=== PATIENT | female | born 1985 | race Caucasian/White ===

== ENCOUNTER → 2019-03-08 13:43 | Outpatient (CLI) | payer OTHER, SELFPAY ==
--- NOTE | 2019-03-08 13:48 | XR_ITS ---
PROCEDURE: XR SHOULDER LT MIN 2V CLINICAL INDICATION: Left shoulder pain Limited range of motion COMPARISON: No exams were available for comparison FINDINGS: No fracture, dislocation, lytic change, or blastic change evident. No significant degenerative change IMPRESSION: Negative left shoulder Dictated by: Nazario Ventura MD 03/08/2019 14:15 Signed by: <Electronically signed by Nazario Ventura MD in [place]> 03/08/2019 14:15
== END ==
PROVIDERS: PCP Physician Assistant; Visit Provider Physician Assistant
DX: M25.512 Pain in left shoulder (principal)
CPT/HCPCS: 73030

== ENCOUNTER → 2019-03-21 16:20 | Outpatient (CLI) | payer OTHER, SELFPAY | PROVIDERS: Visit Provider Nurse Practitioner Obstetrics & Gynecology | DX: N39.0 Urinary tract infection, site not specified (principal) | CPT/HCPCS: 87086; 87088; 87186 ==

== ENCOUNTER → 2019-04-18 10:39 | Outpatient (CLI) | payer OTHER, SELFPAY ==
--- NOTE | 2019-04-18 10:41 | MR_ITS ---
PROCEDURE: MR SHOULDER LT WO CON CLINICAL INDICATION: Left shoulder pain X 3 months Left shoulder pain with limited range of motion COMPARISON: XR SHOULDER LT MIN 2V from 03/08/2019 TECHNIQUE: Routine multiplanar multi echo sequences are performed without gadolinium enhancement. FINDINGS: There are mild hypertrophic changes of the acromioclavicular joint with mild subacromial stenosis. There is slight increased T2 signal and slight thickening of the distal aspect of the supraspinatus tendon suggesting tendinopathy/tendinosis. There is some focal thinning of the musculotendinous junction of the supraspinatus along the under surface and could be related to partial tear. A complete tear or full-thickness tear is not identified. The subscapularis, infraspinatus, and teres minor tendons appear intact. No obvious labral tear. There is a small shoulder joint effusion. The bicipital tendon appears to be in place. No fracture or dislocation. Small amount of fluid is present in the bicipital tendon sheath IMPRESSION: 1. Tendinopathy/tendinosis of the supraspinatus tendon with mild subacromial stenosis with possible partial tear of the musculotendinous junction of the supraspinatus tendon 2. Small shoulder joint effusion. Small amount of fluid is present in the bicipital tendon sheath suggesting mild tenosynovitis Dictated by: Nazario Ventura MD 04/20/2019 12:02 Electronically signed by Nazario Ventura MD in [place] 04/29/2019 09:56
== END ==
PROVIDERS: PCP Physician Assistant; Visit Provider Physician Assistant
DX: M25.512 Pain in left shoulder (principal)
CPT/HCPCS: 73221

== ENCOUNTER → 2019-04-30 08:35 | Outpatient (CLI) | payer OTHER, SELFPAY ==
--- NOTE | 2019-04-30 08:38 | XR_ITS ---
PROCEDURE: XR SHOULDER LT MIN 2V CLINICAL INDICATION: left shoulder pain COMPARISON: XR SHOULDER LT MIN 2V from 03/08/2019 FINDINGS: No fracture, dislocation, lytic change, or blastic change evident. No significant degenerative change IMPRESSION: Negative left shoulder. No change from 03/08/2019 Dictated by: Nazario Ventura MD 04/30/2019 12:49 Electronically signed by Nazario Ventura MD in [place] 04/30/2019 12:49
== END ==
PROVIDERS: PCP Physician Assistant; Visit Provider Orthopaedic Surgery
DX: M25.512 Pain in left shoulder (principal)
CPT/HCPCS: 73030

== ENCOUNTER 2019-06-14 09:00 | Outpatient (RCR) | payer OTHER, SELFPAY ==
--- NOTE | 2019-04-25 10:24 | HMH.RHREAS ---
Rehab Reassessment Rehab OP Re-assessment Start: 04/25/19 10:18 Freq: Status: Active Protocol: Document 04/25/19 10:18 HAILE (Rec: 04/25/19 10:24 HAILE [id number]) Electronically Signed By Caroline Grover OT 04/25/19 10:18 Rehab Re-assessment Subjective Subjective I still haven't heard anything. Objective Objective Notes Pt continues to be seen twice a week in order to address all deficits. Each time pt engages in AROM/AAROM exercises in order to increase AROM at left shoulder. Pt is also passively ranged in flexion, abduction, IR, and ER in supine. Modalities are provided to decrease pain/ inflammation (e-stim). Assessment Progress Assessment Slower Than Expected Assessment Notes Pt is continuing to have significant pain in the left shoulder. Motion has improved SLIGHTLY since initial evaluation. Pt recently had an MRI completed, but has not hear her results. Pt does have an appointment next week with an ortho. Current AROM Flex: 105 degrees Abd: 105 degrees ER: 55 degrees IR: 35 degrees Patient goals met No goals have been met at this time. Goals Not Met all STG and LTG Revised Goals Continue progressing towards all STG and LTG written on initial evaluation. Plan Plan Continue with OT plan of care at this time. Frequency of Therapy 2x's a week Duration of therapy 6 more weeks Time and Billing Re-Eval Time 15 Re-Eval Billing Units 1 PHYSICIAN CERTIFICATION: I certify the specified therapy services for Maritza Carl are required, authorized, and reviewed every 30 days.
--- NOTE | 2019-06-14 10:01 | HMH.RHREAS ---
Rehab Reassessment Rehab OP Re-assessment Start: 04/25/19 10:18 Freq: Status: Active Protocol: Document 06/14/19 09:07 HAILE (Rec: 06/14/19 10:01 HAILE [id number]) Electronically Signed By Caroline Grover OT 06/14/19 09:07 Rehab Re-assessment Subjective Subjective I don't really see a difference. Objective Objective Notes Pt continues to be seen twice a week in order to address all deficits. Each time pt engages in AROM/AAROM exercises in order to increase AROM at left shoulder. Pt is also passively ranged in flexion, abduction, IR, and ER in supine. Modalities are provided to decrease pain/ inflammation (e-stim). Assessment Progress Assessment Slower Than Expected Assessment Notes Pt is continuing to have pain in the left shoulder daily. Pt was given second injection on the 12th of this month. Pt reports she does not see an improvement in pain or motion. During previous session, therapist was able to passivly range the shoulder slightly more in abduction and ER than normal. During movement pain: 01/30 No motion: 08/02 Current AROM Flex: 112 degrees Abd: 105 degrees ER: 65 degrees IR: 55 degrees Patient goals met No goals have been met at this time. Goals Not Met all STG and LTG Revised Goals Continue progressing towards all STG and LTG written on initial evaluation. Plan Plan Continue with OT plan of care at this time. Frequency of Therapy 2x's a week Duration of therapy 6 more weeks Time and Billing Re-Eval Time 15 Re-Eval Billing Units 1 PHYSICIAN CERTIFICATION: I certify the specified therapy services for Maritza Carl are required, authorized, and reviewed every 30 days.
== END 2019-06-14 09:05 | disposition home or self-care (01) ==
LOC: OT 09:00
PROVIDERS: Visit Provider Physician Assistant
DX: M25.512 Pain in left shoulder (principal)
CPT/HCPCS: 97014; 97033; 97110; 97140; 97164; 97166; G0283

== ENCOUNTER → 2019-11-04 13:48 | Outpatient (CLI) | payer OTHER, SELFPAY ==
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
== END ==
PROVIDERS: PCP Physician Assistant; Visit Provider Orthopaedic Surgery
DX: S52.501A Unspecified fracture of the lower end of right radius, initial encounter for closed fracture (principal); Z09 Encounter for follow-up examination after completed treatment for conditions other than malignant neoplasm
CPT/HCPCS: 73110

== ENCOUNTER → 2019-11-22 13:45 | Outpatient (CLI) | payer OTHER, SELFPAY ==
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
== END ==
PROVIDERS: PCP Physician Assistant; Visit Provider Orthopaedic Surgery
DX: S62.101A Fracture of unspecified carpal bone, right wrist, initial encounter for closed fracture (principal)
CPT/HCPCS: 73110

== ENCOUNTER → 2019-12-17 09:24 | Outpatient (CLI) | payer OTHER, SELFPAY ==
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
== END ==
PROVIDERS: PCP Physician Assistant; Visit Provider Orthopaedic Surgery
DX: S62.101A Fracture of unspecified carpal bone, right wrist, initial encounter for closed fracture (principal)
CPT/HCPCS: 73110

== ENCOUNTER 2019-12-17 10:26 | Outpatient (RCR) | payer OTHER, SELFPAY | END 2019-12-17 11:00 | disposition home or self-care (01) | LOC: OT 10:26 | PROVIDERS: Visit Provider Orthopaedic Surgery | DX: S62.101A Fracture of unspecified carpal bone, right wrist, initial encounter for closed fracture (principal) | CPT/HCPCS: 97763 ==

== ENCOUNTER → 2020-01-02 09:52 | Outpatient (CLI) | payer OTHER, SELFPAY ==
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
== END ==
PROVIDERS: PCP Physician Assistant; Visit Provider Orthopaedic Surgery
DX: S52.501A Unspecified fracture of the lower end of right radius, initial encounter for closed fracture (principal)
CPT/HCPCS: 73110

== ENCOUNTER → 2020-01-03 11:54 | Outpatient (POV) | payer OTHER, SELFPAY ==
[2020-01-03 12:11] VITALS: BP 106/44; PULSE 98; RESP 20; TEMP 37; O2SAT 100; BMI 33.3
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
== END ==
PROVIDERS: PCP Physician Assistant; Visit Provider Anesthesiology
DX: G90.511 Complex regional pain syndrome I of right upper limb (principal)
CPT/HCPCS: 99202

== ENCOUNTER 2020-01-08 09:40 | Day surgery (SDC) | payer OTHER, SELFPAY ==
[2020-01-08 09:51] VITALS: BP 115/46; PULSE 75; RESP 18; TEMP 36.4; O2SAT 95; BMI 33.8
[2020-01-08 10:27] VITALS: BP 131/87; BP 132/79; PULSE 88; RESP 18; O2SAT 99
[2020-01-08 11:10] VITALS: BP 115/79; PULSE 68; RESP 18; TEMP 36.6
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
== END 2020-01-08 10:45 | disposition home or self-care (01) ==
LOC: SC.PAINP 09:41
PROVIDERS: PCP Physician Assistant; Visit Provider Anesthesiology
DX: G90.511 Complex regional pain syndrome I of right upper limb (principal)
CPT/HCPCS: 64510; 77003; J1040; Q9966

== ENCOUNTER → 2020-01-20 10:52 | Outpatient (POV) | payer OTHER, SELFPAY ==
[2020-01-20 11:07] VITALS: BP 115/47; PULSE 71; RESP 18; O2SAT 98; BMI 32.9
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
== END ==
PROVIDERS: PCP Physician Assistant; Visit Provider Clinical Nurse Specialist Family Health
DX: G90.511 Complex regional pain syndrome I of right upper limb (principal)
CPT/HCPCS: 99212

== ENCOUNTER → 2020-01-23 10:04 | Outpatient (CLI) | payer OTHER, SELFPAY ==
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
== END ==
PROVIDERS: PCP Physician Assistant; Visit Provider Orthopaedic Surgery
DX: G90.511 Complex regional pain syndrome I of right upper limb (principal); S62.101A Fracture of unspecified carpal bone, right wrist, initial encounter for closed fracture
CPT/HCPCS: 73110

== ENCOUNTER → 2020-02-06 08:42 | Outpatient (POV) | payer OTHER, SELFPAY ==
[2020-02-06 08:58] VITALS: BP 115/45; PULSE 70; RESP 18; O2SAT 98; BMI 32.9
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
== END ==
PROVIDERS: PCP Physician Assistant; Visit Provider Clinical Nurse Specialist Family Health
DX: G90.511 Complex regional pain syndrome I of right upper limb (principal)
CPT/HCPCS: 99212

== ENCOUNTER 2020-02-14 08:48 | Day surgery (SDC) | payer OTHER, SELFPAY ==
[2020-02-14 09:07] VITALS: BP 109/55; PULSE 77; RESP 18; TEMP 37.5; O2SAT 100; BMI 32.9
[2020-02-14 09:48] VITALS: BP 125/88; PULSE 79; RESP 18
[2020-02-14 09:49] VITALS: BP 135/88; PULSE 79; RESP 18; O2SAT 99
--- NOTE | 2020-02-14 10:01 | HMH.PMPROC ---
- Procedure Date: 02/14/20 Time: 10:01 Anesthesiologist:: Manjeet Torres MD Complications:: None Pre-procedure Diagnosis:: Complex regional pain syndrome type I of the right upper extremity Post-procedure Diagnosis:: Same Indications for Procedure:: This patient is a pleasant 34-year-old white female who we are treating for complex regional pain syndrome type I of the right upper extremity. She has had 1 stellate ganglion block on the right side. This did help some with her autonomic symptoms. She has noticed decrease in swelling and decrease in discoloration. She still has significant pain and difficulty with movement. She is scheduled for another right stellate ganglion block/sympathetic block today followed by physical therapy. Procedure Details:: Right stellate ganglion block Informed consent was obtained and the risk and benefits of the procedure were explained the patient. Patient was taken to the procedure room. The right neck was prepped using ChloraPrep. The skin and subcutaneous tissues were anesthetized using lidocaine. A 25-gauge needle was used and advanced to the transverse process of the C7 vertebral body on the right side. Needle placement was confirmed with dye. We then injected 20 mL of lidocaine 1% with Depo-Medrol 80 mg into the area of the right stellate ganglion. The patient tolerated the procedure well with no complications. She did very well with this procedure and felt good pain relief in her right upper extremity immediately after the procedure. She was sent to physical therapy after the procedure. Plan and Disposition:: We will follow-up with her and in 1 week. We will reevaluate her symptoms and plan on repeat right stellate ganglion block here in the next 1 to 2 weeks again followed by physical therapy. I told the patient that we will plan on at least 3 stellate ganglion blocks followed by physical therapy and then reassess her symptomology at that point.
[2020-02-14 10:09] VITALS: BP 118/59; PULSE 74; RESP 20; O2SAT 99
== END 2020-02-14 10:10 | disposition home or self-care (01) ==
LOC: SC.PAINP 08:49
PROVIDERS: PCP Physician Assistant; Visit Provider Anesthesiology
DX: G90.511 Complex regional pain syndrome I of right upper limb (principal); Z82.49 Family history of ischemic heart disease and other diseases of the circulatory system; Z87.448 Personal history of other diseases of urinary system; Z79.899 Other long term (current) drug therapy
CPT/HCPCS: 64510; 77003; J1040; Q9966

== ENCOUNTER 2020-02-19 08:00 | Outpatient (RCR) | payer OTHER, SELFPAY ==
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
--- NOTE | 2020-02-04 08:50 | HMH.RHREAS ---
Rehab Reassessment Rehab OP Re-assessment Start: 02/04/20 08:20 Freq: Status: Active Protocol: Document 02/04/20 08:20 RMARSHALL (Rec: 02/04/20 08:50 [email or web address] [id number]) Electronically Signed By Caroline Grover OT 02/04/20 08:20 Rehab Re-assessment Subjective Subjective My shoulder has been hurting me more. Objective Objective Notes Pt continues to be seen twice a week in order to address RUE deficits. Pt is passively ranged at all joints on RUE ( fingers, wrist, elbow, and shoulder). Pt also engages in AROM and AAROM exercises at the RUE. Modalities are provided in order to try to decrease pain/inflammation at RUE. Assessment Progress Assessment Slower Than Expected Assessment Notes At this point in time, pt has not demonstrated improvement in RUE. Therapist is awaiting on dynasplint to fit patient for wrist extension and finger extension splint to aid in regaining motion of the right hand. Patient is also receiving treatment from pain management in order to control her pain/inflammation at RUE. Pt has received one injection from [employer] and has recently started gabapentin 3x's a day 100mg. Therapists main focus is maintaining the motion she has in the RUE until her CRPS begin resolving. For now, pt' s measurements are all the same as they were at initial evaluation Patient goals met No goals have been met at this time. Goals Not Met STG and LTG Revised Goals Continue progressing towards all goals written on initial evaluation Plan Plan Continue with OT plan of care. Frequency of Therapy 2x's a week Duration of therapy 8 more weeks Time and Billing Re-Eval Time 15 Re-Eval Billing Units
== END 2020-02-19 09:00 | disposition home or self-care (01) ==
LOC: OT 08:00
PROVIDERS: Visit Provider Orthopaedic Surgery
DX: S52.501A Unspecified fracture of the lower end of right radius, initial encounter for closed fracture (principal)
CPT/HCPCS: 97010; 97014; 97018; 97110; 97140; 97164; 97167; G0283

== ENCOUNTER → 2020-02-27 09:51 | Outpatient (CLI) | payer OTHER, SELFPAY ==
--- NOTE | 2020-02-27 | CT_ITS ---
PROCEDURE: CT SOFT TISSUE NECK WO CON CLINICAL HISTORY: Right-sided neck pain and swelling COMPARISON: No exams were available for comparison TECHNIQUE: Oral Contrast: None IV Contrast: None Axial images obtained with sagittal and coronal reformats. All CT scans at the facility use one or more dose reduction, viz: automated exposure control, ma/kV adjustment per patient size (including targeted exams where dose is matched to indication, i.e. head), or iterative reconstruction technique. FINDINGS: The nasopharynx has an unremarkable appearance. There is some increased soft tissue density in the left oral pharyngeal region. This is at the level of the uvula. Please correlate with direct visualization. The hypopharynx, epiglottis, and glottic region have an unremarkable appearance. There is a large heterogeneous mass of the right lobe of the thyroid gland measuring 5.8 x 3.2 x 4.2 cm longitudinal, transverse, and AP respectively there does appear to be a prominent cystic component to this mass with some peripheral areas of slight increased echogenicity. This is causing deviation of the trachea toward the left by 1.3 cm with some minimal narrowing of the airway. No cervical adenopathy. There are few scattered small cervical lymph nodes bilaterally. No acute finding in the lung apices IMPRESSION: 1. Complex cystic and solid-appearing right thyroid mass at 5.8 x 3.2 x 4.2 cm causing deviation of the trachea toward the left. 2. Slight increased soft tissue fullness in the oropharynx on the left. Please correlate with direct visualization. Dictated b Nazario Ventura MD 02/27/2020 13:16 Nazario Ventura MD in [facility] 02/27/2020 13:16
--- NOTE | 2020-02-27 | CT_ITS ---
PROCEDURE: CT HEAD/BRAIN WO CON CLINICAL INDICATION: Pain and swelling COMPARISON: CT CT HEAD/BRAIN WO CON from 10/29/2019 TECHNIQUE: Axial images obtained. All CT scans at the facility use one or more dose reduction, viz: automated exposure control, ma/kV adjustment per patient size (including targeted exams where dose is matched to indication, i.e. head), or iterative reconstruction technique. FINDINGS: No midline shift, mass effect, intracranial hemorrhage, hydrocephalus, or extra-axial fluid collection is evident. The calvarium has an unremarkable appearance. No mastoid effusion. No sinus air-fluid level. There is a 11 mm retention cyst in the left maxillary sinus medially IMPRESSION: No acute intracranial finding Dictated b Nazario Ventura MD 02/27/2020 13:11 Nazario Ventura MD in [facility] 02/27/2020 13:11
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
[2020-02-27 13:10] LABS: Basophils % 0.2 % (0.1-2.0); Eosinophils # 0.1 K/mm3 (0.0-0.4); Eosinophils % 0.7 % (0.1-12.0); Hematocrit 40.7 % (37.0-47.0); Hemoglobin 13.5 g/dL (12.2-16.2); Lymphocytes # 1.1 K/mm3 (0.7-4.5); Lymphocytes % 8.8 % (10-50); Mean Corpuscular HGB Conc 33.1 g/dL (31.8-35.4); Mean Corpuscular Hemoglobin 31.3 pg (27.0-31.2); Mean Corpuscular Volume 94.5 fl (81-99); Mean Platelet Volume 7.6 fl (7.4-10.4); Monocytes # 0.6 K/mm3 (0.1-1.0); Monocytes % 4.8 % (1.7-9.3); Neutrophils # 10.9 K/mm3 (1.8-7.8); Neutrophils % 85.4 % (37.0-80.0); Platelet Count 336 K/mm3 (142-424); Red Cell Distribution Width 13.5 % (11.5-17.5); White Blood Count 12.8 K/mm3 (4.8-10.8)
[2020-02-27 13:12] LABS: MANUAL DIFFERENTIAL MANUAL DIFFERENTIAL (MANUAL DIFF)
[2020-02-27 13:45] LABS: Lymphocytes % 13 % (10-50); Monocytes % 8 % (2-9); Neutrophils % 79 % (42-76); Platelet Estimate Normal; RBC Morphology Normal; Total Cells Counted 100
== END ==
PROVIDERS: PCP Physician Assistant; Visit Provider Clinical Nurse Specialist Family Health
DX: S52.501A Unspecified fracture of the lower end of right radius, initial encounter for closed fracture (principal)
CPT/HCPCS: 36415; 70450; 70490; 73110; 85007; 85025

== ENCOUNTER → 2020-02-27 11:05 | Outpatient (POV) | payer OTHER, SELFPAY ==
[2020-02-27 11:27] VITALS: BP 125/88; PULSE 88; RESP 18; O2SAT 98; BMI 32.9
--- NOTE | 2020-02-27 11:51 | HMH.PAINSOAP ---
[facility] Pain Management SOAP Note Subjective:: Patient is a 34-year-old white female who presents today at the recommendation of Dr. Levin. Patient is being treated in our clinic for CRPS type I of her right upper extremity. Patient recently underwent a stellate ganglion block. Patient says she was getting relief following the injection. She underwent the injection approximately 13 days ago. Patient says she began to notice some swelling on the right side of her neck 2 days ago. She says she also started to have some difficulty with swallowing and with turning her head. She denies any pain on the left side. Patient says she did contact Dr. Levin who advised her to contact our clinic for follow-up. Patient does have some generalized swelling noted to her right neck area. She denies any fevers, headaches, chills or dizziness. She rates her pain a 7 out of 10. Patient denies any changes in her CRPS type symptoms. She says that she has not noticed any changes in her CRPS type symptoms. Review of Systems General: No recent weight changes, no fever, no sleep disturbances Respiratory: No cough, no shortness of air, no recurring pulmonary infections Cardiovascular/peripheral vascular: No chest pain, no palpitations, no edema, no shortness of breath Gastrointestinal: No new onset incontinence, normal bowel movements reported Genitourinary: No new onset incontinence Musculoskeletal: Right neck pain Psychiatric: Normal mood/affect Neurological: [Denies weakness in extremities], [denies balance issues] Objective:: Physical exam General: Alert and oriented x3, no acute distress, pleasant and cooperative, [on room air] Lungs: Respirations even and unlabored, symmetrical chest expansion Eyes: PERRL Musculoskeletal: Flexion and extension of apical spine somewhat guarded secondary to pain, deep tendon reflexes normal, strength in upper and lower extremities [5/5], normal gait noted Neurological: Speech clear, health evaluator equal, no gross sensory deficit Assessment:: CRPS type I of his right upper extremity Plan:: After further discussion with Dr. Torres, we will send the patient for a CBC today along with a CT of her head and neck. Patient had the injection approximately 2 weeks ago. Symptoms started approximately days ago. We will refer her to ENT today. She will be seen in their office at 1245 today. We will then follow-up with her regarding her CBC and CT of her head and neck after she does see the provider in the ENT clinic. I have attempted to contact Dr. Levin today regarding our plan of care. Patient has been instructed to contact the clinic if she has any concerns before next appointment. The patient and I specifically discussed risk factors for COVID19. These risks include, but are not limited to age greater than 60, heart or lung disease, diabetes, immunosuppression, and travel. We also discussed NSAIDs may worsen COVID19 infection or symptoms. Patient should not use NSAIDs to treat COVID19 signs or symptoms. Patient was also informed that any type of corticosteroid of any form (oral or injection) will decrease the patient's immune system response and may increase the likelihood of COVID19 [address] Torres has reviewed this note and agrees with this plan of care. This note was dictated using voice recognition software and make contain errors or omissions. [facility] History I have reviewed the patient's past medical history: Yes Medical History: Denies:: Cancer, Diabetes Mellitus Type 1, Diabetes Mellitus Type 2, Internal Pacemaker, MRSA, Seizures *Have you ever received a pneumonia vaccine?: Yes *Have you received a flu vaccine this season?: Yes Other Medical History: Denies: Blood Transfusion Reaction Other Surgeries: Yes: , Other. No: Pacemaker Amputation: No Fractures: Yes (right wrist, tailbone) - *Social History Smoking Status: Never smoker Alcohol Intake: never Substance Use Type: linwood
== END ==
PROVIDERS: PCP Physician Assistant; Visit Provider Clinical Nurse Specialist Family Health
DX: G90.511 Complex regional pain syndrome I of right upper limb (principal)
CPT/HCPCS: 99212

== ENCOUNTER → 2020-03-02 08:36 | Outpatient (CLI) | payer OTHER, SELFPAY ==
--- NOTE | 2020-03-02 08:37 | US_ITS ---
PROCEDURE: US THYROID CLINICAL INDICATION: possible thyroid mass vs thyroid hemorrhage COMPARISON: CT CT SOFT TISSUE NECK WO CON from 02/27/2020 FINDINGS: Right lobe: 4.0cm x 6.3cm x 4.6cm. There is a 5 x 4 cm complex cystic mass involving the right lobe of the thyroid gland. There is some wall thickening along the lower aspect of this mass versus compressed thyroid tissue. There is some irregularity of the cyst wall superiorly along with some septation superiorly. No obvious acute hemorrhage within the mass. Left lobe: 1.0cm x 2.7cm x 0.9cm. The left lobe is 2.7 x 1 cm with heterogeneous echogenicity and a 9 mm complex nodule in the upper pole Isthmus: A 2 x 0.9 cm solid-appearing nodules present in the right aspect of the isthmus Additional findings: IMPRESSION: Enlarged right lobe of the thyroid gland with complex cystic mass measuring 5 x 4 cm. Dictated b Nazario Ventura MD 03/03/2020 09:44 Nazario Ventura MD in [facility] 03/03/2020 09:44
[2020-03-02 10:32] LABS: Calcium 9.6 mg/dl (8.4-10.2)
[2020-03-02 10:48] LABS: Free T4 (Free Thyroxine) 2.09 ng/dl (0.78-2.19)
[2020-03-02 11:02] LABS: Thyroid Stimulating Hormone < 0.02 uIU/mL (0.465-4.68)
[2020-03-03 09:37] LABS: Thyroid Peroxidase Antibodies <9 IU/mL (0-34)
[2020-03-04 19:43] LABS: Thyroid Stimulating Immunoglob <0.10 IU/L (0.00-0.55)
[2020-03-26 09:31] LABS: Calcitonin <2.0
== END ==
PROVIDERS: PCP Physician Assistant; Visit Provider Otolaryngology
DX: E07.9 Disorder of thyroid, unspecified (principal); J39.8 Other specified diseases of upper respiratory tract
CPT/HCPCS: 36415; 76536; 82308; 82310; 84439; 84443; 84445; 86376

== ENCOUNTER → 2020-03-02 09:21 | Outpatient (CLI) | payer OTHER, SELFPAY | PROVIDERS: Visit Provider Otolaryngology | DX: R22.1 Localized swelling, mass and lump, neck (principal) | CPT/HCPCS: 36415; 82308; 82310; 84439; 84443; 84445; 86376 ==

== ENCOUNTER → 2020-03-05 13:57 | Outpatient (POV) | payer OTHER, SELFPAY ==
[2020-03-05 14:22] VITALS: BP 121/71; PULSE 65; RESP 18; O2SAT 98; BMI 27.2
--- NOTE | 2020-03-05 14:33 | HMH.PAINSOAP ---
[facility] Pain Management SOAP Note Subjective:: Patient is a very pleasant 34-year-old white female who presents today for follow-up. She is being treated for CRPS type I of her right upper extremity. At the patient's last visit, she was reporting to have issues with swallowing as well as occultly with turning her head. She was having some swelling to her neck on the right side. Also reported at that last visit that she developed the swelling following as stellate ganglion block. As a result, she was sent to our clinic by Dr. Levin. Patient was sent for a CT scan. She was also sent to ENT that day. Patient has since followed up with ENT who has scheduled the patient for a biopsy of her thyroid on March 18. She says she is also scheduled to have a nerve conduction study for possible carpal tunnel release. That will be performed on 09 March. She says that she is not having any pain at this time. She says that the stellate ganglion block did take all of the swelling out of her right upper extremity, most notably her hand. She does say, however, she is continuing to have autonomic changes of color and temperature changes. She says the injections have given her some relief, however it has not taken all of her symptoms away. She rates her pain a 0 out of 10 at this time. Review of Systems General: No recent weight changes, no fever, no sleep disturbances Respiratory: No cough, no shortness of air, no recurring pulmonary infections Cardiovascular/peripheral vascular: No chest pain, no palpitations, no edema, no shortness of breath Gastrointestinal: No new onset incontinence, normal bowel movements reported Genitourinary: No new onset incontinence Musculoskeletal: Right upper extremity welling with temperature changes and color changes Psychiatric: Normal mood/affect Neurological: [Denies weakness in extremities], [denies balance issues] Objective:: Physical exam General: Alert and oriented x3, no acute distress, pleasant and cooperative, [on room air] Lungs: Respirations even and unlabored, symmetrical chest expansion Eyes: PERRL Musculoskeletal: Flexion and extension of cervical spine somewhat guarded secondary to pain, deep tendon reflexes normal, strength in upper and lower extremities [5/5], normal gait noted Neurological: Speech clear, field control inspector equal, no gross sensory deficit Assessment:: CRPS type I right upper extremity, neck pain Plan:: Patient is scheduled for a biopsy on March 18 and a nerve conduction study on March 09. I did discuss with the patient that we will postpone any injective therapy for now until she undergoes a full work-up with ENT. Patient and I did discuss her previous CT scan of her neck along with her most recent scan. She will follow-up with us after her biopsy and nerve conduction study to discuss a further plan of care. Again, we did discuss if she is benefiting from the stellate ganglion block we will continue with the injections versus possible spinal cord stimulation. She is currently undergoing occupational therapy/physical therapy and she does seem to be getting relief with this. Patient does understand that if the current treatment is working for her, we will not need to change the plan of care. She does also understand that she does have the option of a spinal cord stimulator in the event that the other therapies were not beneficial to her. Patient has been instructed to contact the clinic if she has any concerns before her next appointment. The patient and I specifically discussed risk factors for COVID19. These risks include, but are not limited to age greater than 60, heart or lung disease, diabetes, immunosuppression, and travel. We also discussed NSAIDs may worsen COVID19 infection or symptoms. Patient should not use NSAIDs to treat COVID19 signs or symptoms. Patient was also informed that any type of corticosteroid of any form (oral or injection) will decrease the patient's im
== END ==
PROVIDERS: PCP Physician Assistant; Visit Provider Clinical Nurse Specialist Family Health
DX: G90.511 Complex regional pain syndrome I of right upper limb (principal)
CPT/HCPCS: 99212

== ENCOUNTER → 2020-03-18 10:01 | Outpatient (CLI) | payer OTHER, SELFPAY ==
--- NOTE | 2020-03-18 10:01 | US_ITS ---
PROCEDURE: US FNA THYROID CLINICAL INDICATION: Multiple thyroid nodules, dominant cystic mass on the right COMPARISON: US US THYROID from 03/02/2020 TECHNIQUE: Pre biopsy ultrasound once again demonstrates the dominant complex cystic mass of the right lobe of the thyroid gland. Following obtaining informed consent, using aseptic technique and local anesthesia with buffered lidocaine, fine-needle aspiration was performed of the nodule of interest using sonographic guidance. 3 passes were made into the nodule with a 21 gauge needle. Specimen was given to cytology. FINDINGS: CYTOLOGY: Negative for malignancy. IMPRESSION: Status post fine-needle aspiration of complex cystic mass of the right lobe of the thyroid gland which is negative for malignancy. The patient tolerated the procedure well without evidence of immediate complications and left the ultrasound suite in stable condition. Dictated by: Nazario Ventura MD 04/03/2020 13:06 Nazario Ventura MD in [facility] 04/03/2020 13:06
== END ==
PROVIDERS: PCP Physician Assistant; Visit Provider Otolaryngology
DX: E04.1 Nontoxic single thyroid nodule (principal)
CPT/HCPCS: 10005; 76942

== ENCOUNTER 2020-05-28 01:34 | Emergency (ER) | payer OTHER, SELFPAY ==
[2020-05-28 01:36] VITALS: BP 120/74; PULSE 73; RESP 16; TEMP 36.7; O2SAT 100; BMI 32.8
[2020-05-28 02:00] VITALS: BP 109/63; PULSE 81; RESP 16; O2SAT 99
--- NOTE | 2020-05-28 02:00 | HMH.EDGENADL ---
ED Disposition Clinical Impression: Post-operative complication Qualifiers: Surgical complication system/body Area: circulatory system Surgical complication type: unspecified Procedure type: circulatory, unspecified Qualified Code(s): I97.89 - Other postprocedural complications and disorders of the circulatory system, not elsewhere classified Disposition: Home, Self-Care Condition on Discharge: Good Instructions: DI for Acute Pain -- Adult Additional Instructions: call pcp and surg in am for close follow up Referrals: Ladonna Oliver PA [Primary Care Provider] - - Critical Care Critical Care Time: No Attestation: On 05/28/20, the high probability of a clinically significant, sudden or life threatening deterioration of the following system(s) required my full and direct attention, intervention and personal management. The time I documented below is in addition to time spent performing reported procedures but includes the following listed in this critical care notation. Medical Decision Making - Medical Records Medical records reviewed: Yes: I reviewed the patient's medical records. - Titi Inquiry Pt receiving controlled substance: No Vital Signs: 05/28/20 01:36 05/28/20 02:00 05/28/20 02:30 Temperature 98.1 F Temperature Source Oral Pulse Rate [Left Radial] 73 81 72 Respiratory Rate 16 16 16 Blood Pressure [Right Arm] 120/74 109/63 L 118/64 Blood Pressure Mean [Right Arm] 89 78 82 Blood Pressure Source [Right Arm] Automatic Cuff Blood Pressure Position [Right Arm] Sitting 02 Sat by Pulse Oximetry 100 99 98 Oxygen Delivery Method Room Air Room Air Room Air Orders (Tests/Meds): ED MEDICATIONS Discontinued Medications Generic Name Dose Route Start Last Admin Trade Name Freq PRN Reason Stop Dose Admin Hydrocodone Bitart/Acetaminophen 1 tab 05/28/20 02:40 05/28/20 02:42 Hydrocodone/Apap 5/325 Mg Tablet PO 05/28/20 02:41 1 tab ONCE ONE Administration - Physician Consults Physician Consulted: baldomero Reason -: Pt condition - Reevaluation(s) Time: 03:06 Reevaluation #1: improved Medical Decision Narrative: removed garth and did improve some General Adult HPI - General Chief complaint: PAIN Stated complaint: hand surgery today R pinky purple Time Seen by Provider: 05/28/20 01:45 Mode of Arrival: Ambulatory Source of Information: Patient, Relative, Medical Record Limitations: No Limitations Description of Symptoms (Recalled from ER Triage Doc. by RN): pt stated she had hand surgery today on her right hand at the [facility] to repair her claw hand. pt stated she noticed her pinky finger had a blue color to it around 1130pm. pt stated she still has sensation to that finger and can wiggle it. pt also c/o her nerve block is wearing off and she is in pain and wasnt able to fill her prescription tonight. - History of Present Illness HPI narrative: pt with recent rt hand surg today and noted rt fifth finger blue - has pain but no other c/o Onset (ago): hour(s) Location: right, upper extremity Severity: moderate Associated symptoms: denies other symptoms - Related Data Home Medications Medication Instructions Recorded Confirmed Ibuprofen 800 mg PO Q8HP PRN 01/03/20 03/26/20 Gabapentin [Neurontin 100mg 100 mg PO TID 02/14/20 03/26/20 cap] Allergies Allergy/AdvReac Type Severity Reaction Status Date / Time No Known Allergies Allergy Verified 03/26/20 14:46 [facility] History - Hepatitis A Screen Drug use history?: No High risk sexual behaviors?: No History of sexually transmitted infection?: No Currently employed?: No Childcare worker?: No Do you have indoor plumbing?: Yes Do you have electricity?: Yes Attestation statement:: This patient has been screened for Hepatitis A risk factors. I have reviewed the patient's past medical history: Yes Medical History: Denies:: Cancer, Diabetes Mellitus Type 1, Diabetes Mellitus Type 2,
--- NOTE | 2020-05-28 02:00 | PC.NURSE ---
pt stated she called her surgeon once she realized the discoloration in her finger. they stated the surgeon instructed her to take off the garth bandage and loosen it and recheck the status of her finger. pt stated she didnt do that at home because they were scared they wouldnt be abl eto get the bandage back on correctly. instructed this nurse to go ahead and take off garth bandage and recheck pt finger color in the next 15 minutes.
--- NOTE | 2020-05-28 02:27 | PC.NURSE ---
cap refill present in affected finger less than 2
[2020-05-28 02:30] VITALS: BP 118/64; PULSE 72; RESP 16; O2SAT 98
--- NOTE | 2020-05-28 02:30 | PC.NURSE ---
call placed to [facility] dr juarez by michael marie.
--- NOTE | 2020-05-28 02:32 | PC.NURSE ---
paged beauty sales consultant MD for Dr. Storey at [facility]
--- NOTE | 2020-05-28 02:51 | PC.NURSE ---
speaking with Dr. Jim at [facility]
--- NOTE | 2020-05-28 02:53 | PC.NURSE ---
received call from dr alexandre at [facility]; md was advised that splint could be shifted somewhat for comfort, obviously no intention to remove it; and they will follow up as they planned.
[2020-05-28 03:04] VITALS: BP 119/81; PULSE 73; RESP 16; TEMP 36.9; O2SAT 98
== END 2020-05-28 03:12 | disposition home or self-care (01) ==
PROVIDERS: Emergency Provider Emergency Medicine; PCP Physician Assistant
DX: G89.18 Other acute postprocedural pain (principal); I97.89 Other postprocedural complications and disorders of the circulatory system, not elsewhere classified
CPT/HCPCS: 99282

== ENCOUNTER → 2021-09-23 10:30 | Outpatient (CLI) | payer OTHER, SELFPAY ==
--- NOTE | 2021-09-23 10:44 | XR_ITS ---
FINAL REPORT CLINICAL HISTORY: bilateral anterior knee pain FINDINGS: 4 views of the left knee were obtained. There is no acute fracture or dislocation. The joint spaces are intact. The soft tissues are unremarkable. IMPRESSION: No acute process. Reviewed, Interpreted and Dictated by Rafat Araujo III, MD Transcribed by Carlos Arnold Authenticated by Rafat Araujo III, MD on 09/23/2021 11:50:18 AM [facility]
--- NOTE | 2021-09-23 10:44 | XR_ITS ---
FINAL REPORT CLINICAL HISTORY: bilateral anterior knee pain FINDINGS: 4 views of the right knee were obtained. There is no acute fracture or dislocation. The joint spaces are intact. The soft tissues are unremarkable. IMPRESSION: No acute process. Reviewed, Interpreted and Dictated by Rafat Araujo III, MD Transcribed by Carlos Arnold Authenticated by Rafat Araujo III, MD on 09/23/2021 11:50:23 AM [facility]
[2021-09-23 12:03] LABS: Basophils # 0.1 K/mm3 (0-0.2); Basophils % 0.9 % (0.1-2.0); Eosinophils # 0.1 K/mm3 (0.0-0.4); Eosinophils % 1.4 % (0.1-12.0); Hematocrit 42.5 % (37.0-47.0); Hemoglobin 13.2 g/dL (12.2-16.2); Lymphocytes # 1.4 K/mm3 (0.7-4.5); Mean Corpuscular HGB Conc 30.9 g/dL (31.8-35.4); Mean Corpuscular Hemoglobin 29.5 pg (27.0-31.2); Mean Corpuscular Volume 95.3 fl (81-99); Mean Platelet Volume 8.9 fl (7.4-10.4); Monocytes # 0.3 K/mm3 (0.1-1.0); Monocytes % 4.1 % (1.7-9.3); Neutrophils # 5.4 K/mm3 (1.8-7.8); Neutrophils % 74.5 % (37.0-80.0); Platelet Count 351 K/mm3 (142-424); Red Blood Count 4.46 M/mm3 (4.20-5.40); Red Cell Distribution Width 13.7 % (11.5-17.5); White Blood Count 7.3 K/mm3 (4.8-10.8)
[2021-09-23 12:50] LABS: Erythrocyte Sedimentation Rate 19 mm/hr (0-20)
[2021-09-23 14:41] LABS: 25-OH Vitamin D, Total 16.1 ng/mL (30-100)
[2021-09-23 14:57] LABS: Alanine Aminotransferase 14 U/L (12-78); Albumin/Globulin Ratio 1.4 (1.1-1.8); Alkaline Phosphatase 77 U/L (38-126); Anion Gap 10.4 mEq/L (5-15); Aspartate Amino Transferase 20 U/L (14-36); Bilirubin,Total 0.6 mg/dl (0.2-1.3); Blood Urea Nitrogen 16 mg/dl (7-17); Calcium 8.6 mg/dl (8.4-10.2); Carbon Dioxide 27 mmol/L (22.0-30.0); Chloride 106 mmol/L (98-107); Chol/HDL Ratio 4.5 (1-3.5); Cholesterol 156 mg/dl (140-200); Estimated Glomerular Filt Rate 94 ml/min (>60); GFR (African American) 113 ML/MIN (>60); Globulin 2.8 g/dL (1.3-3.2); Glucose 88 mg/dl (74-100); HDL Cholesterol 35 mg/dl (40-60); Potassium 4.4 mmoL/L (3.5-5.1); Sodium 139 mmol/L (136-145); Total Protein,Serum 6.8 g/dl (6.3-8.2); Triglycerides 101 mg/dl (30-150); VLDL Cholesterol 20 mg/dL (0-40)
[2021-09-23 15:08] LABS: C-Reactive Protein 3.4 mg/L (0-4); Direct LDL Cholesterol 86.16 mg/dL (100-129)
[2021-09-23 15:27] LABS: Thyroid Stimulating Hormone 1.52 uIU/mL (0.465-4.68)
[2021-09-23 15:45] LABS: Vitamin B12 232 pg/mL (239-931)
[2021-09-24 13:12] LABS: Anti-Centromere B Antibodies <0.2 AI (0.0-0.9); Anti-DNA (DS) Ab Qn <1 IU/mL (0-9); Anti-Jo-1 <0.2 AI (0.0-0.9); Anti-Smith Antibody <0.2 AI (0.0-0.9); Antichromatin Antibodies <0.2 AI (0.0-0.9); Antiscleroderma-70 Antibodies <0.2 AI (0.0-0.9); RA Latex Turbid. <10.0 IU/mL (<14.0); RNP Antibodies 0.3 AI (0.0-0.9); Sjogren's Anti-SS-A <0.2 AI (0.0-0.9); Sjogren's Anti-SS-B <0.2 AI (0.0-0.9)
[2021-09-24 23:30] LABS: Lupus Reflex Interpretation Comment: (.); PTT-LA 33.6 sec (0.0-51.9); dRVVT 39.2 sec (0.0-47.0)
[2021-09-27 22:19] LABS: Anti-Cyclic Citrullinated Pept 7 units (0-19)
== END ==
PROVIDERS: PCP Physician Assistant; Visit Provider Physician Assistant
DX: M25.562 Pain in left knee (principal); M25.561 Pain in right knee; R53.83 Other fatigue
CPT/HCPCS: 36415; 73564; 80053; 80061; 82306; 82607; 84443; 85025; 85613; 85651; 86140; 86200; 86225; 86235; 86431

== ENCOUNTER → 2021-10-08 15:38 | Outpatient (CLI) | payer OTHER, SELFPAY | PROVIDERS: PCP Physician Assistant; Visit Provider Physician Assistant | DX: G47.30 Sleep apnea, unspecified (principal); R06.83 Snoring | CPT/HCPCS: 95806 ==

== ENCOUNTER 2023-09-05 21:55 | Outpatient (CLI) | payer BC, SELFPAY ==
[2023-09-05 17:54] LABS: Basophils % 0.5 % (0.1-2.0); Eosinophils # 0.1 K/mm3 (0.0-0.4); Eosinophils % 1.4 % (0.1-12.0); Hematocrit 42.1 % (37.0-47.0); Hemoglobin 14.3 g/dL (12.2-16.2); Lymphocytes # 1.4 K/mm3 (0.7-4.5); Lymphocytes % 23.7 % (10-50); Mean Corpuscular HGB Conc 33.9 g/dL (31.8-35.4); Mean Corpuscular Hemoglobin 30.9 pg (27.0-31.2); Mean Corpuscular Volume 91.1 fl (81-99); Mean Platelet Volume 8.2 fl (7.4-10.4); Monocytes # 0.3 K/mm3 (0.1-1.0); Monocytes % 5.9 % (1.7-9.3); Neutrophils % 68.5 % (37.0-80.0); Platelet Count 282 K/mm3 (142-424); Red Blood Count 4.62 M/mm3 (4.20-5.40); Red Cell Distribution Width 13.8 % (11.5-17.5); White Blood Count 5.8 K/mm3 (4.8-10.8)
[2023-09-05 17:57] LABS: Hemoglobin A1C 5.3 % (4.0-6.0)
[2023-09-05 18:04] LABS: Alanine Aminotransferase 19 U/L (12-78); Albumin Level 4.3 g/dl (3.5-5.0); Albumin/Globulin Ratio 1.5 (1.1-1.8); Alkaline Phosphatase 68 U/L (38-126); Anion Gap 11.5 mEq/L (5-15); Aspartate Amino Transferase 22 U/L (14-36); Bilirubin,Total 0.6 mg/dl (0.2-1.3); Blood Urea Nitrogen 18 mg/dl (7-17); Calcium 9.3 mg/dl (8.4-10.2); Carbon Dioxide 26 mmol/L (22.0-30.0); Chloride 105 mmol/L (98-107); Chol/HDL Ratio 4.4 (1-3.5); Cholesterol 192 mg/dl (140-200); Estimated Glomerular Filt Rate 79 ml/min (>60); GFR (African American) 96 ML/MIN (>60); Globulin 2.9 g/dL (1.3-3.2); Glucose 86 mg/dl (74-100); HDL Cholesterol 44 mg/dl (40-60); Potassium 4.5 mmoL/L (3.5-5.1); Sodium 138 mmol/L (136-145); Total Protein,Serum 7.2 g/dl (6.3-8.2); Triglycerides 68 mg/dl (30-150); VLDL Cholesterol 14 mg/dL (0-40)
[2023-09-05 18:14] LABS: Direct LDL Cholesterol 104.75 mg/dL (100-129)
[2023-09-05 19:18] LABS: 25-OH Vitamin D, Total 26.7 ng/mL (30-100)
[2023-09-05 19:39] LABS: Thyroid Stimulating Hormone 1.67 uIU/mL (0.465-4.68)
[2023-09-05 19:58] LABS: Vitamin B12 245 pg/mL (239-931)
== END 2023-09-05 23:59 ==
LOC: LAB.DROPOF 21:56
PROVIDERS: PCP Physician Assistant; Visit Provider Physician Assistant
DX: M25.551 Pain in right hip (principal); R53.83 Other fatigue; E55.9 Vitamin D deficiency, unspecified; Z79.899 Other long term (current) drug therapy
CPT/HCPCS: 80053; 80061; 82306; 82607; 83036; 84443; 85025

== ENCOUNTER 2023-09-13 09:53 | Outpatient (CLI) | payer BC, SELFPAY ==
--- NOTE | 2023-09-13 09:54 | MM_ITS ---
PROCEDURE INFORMATION: Exam: MG Bilateral Screening 3D Mammography Exam date and time: 09/13/2023 9:45 AM Age: 38 years old Clinical indication: Screening. Her mother had breast cancer. TECHNIQUE: Imaging protocol: Bilateral Screening tomosynthesis and 2D mammography including computer-aided detection (CAD) when performed. COMPARISON: 1. MG DMSB DIG MAMM-SCREEN HORTENCIA W/CAD 06/19/2017 10:09 AM 2. BL US BREAST-LT COMPLETE W/AXILLA 06/19/2017 10:43 AM 3. BR US BREAST-RT COMPLETE W/AXILLA 06/19/2017 10:28 AM FINDINGS: MAMMOGRAPHY: Breast composition: The breasts are heterogeneously dense, which may obscure small masses. Mass: None. Architectural distortion: None. Calcifications: No suspicious calcifications. Asymmetric density: None. Skin thickening: None. Axillary adenopathy: None. IMPRESSION: No mammographic evidence of malignancy. Annual screening is recommended unless otherwise clinically indicated. ASSESSMENT: BI-RADS Category 1: Negative
== END 2023-09-13 23:59 ==
LOC: RAD 09:54
PROVIDERS: PCP Physician Assistant; Visit Provider Physician Assistant
DX: Z12.31 Encounter for screening mammogram for malignant neoplasm of breast (principal); M25.551 Pain in right hip
CPT/HCPCS: 77063; 77067

== ENCOUNTER 2023-12-26 15:26 | Outpatient (POV) | payer BC, SELFPAY | END 2023-12-26 23:59 | disposition home or self-care (01) | LOC: SC 15:27 | PROVIDERS: Visit Provider Specialist/Technologist | DX: Z00.00 Encounter for general adult medical examination without abnormal findings (principal) ==

== ENCOUNTER 2025-06-02 09:04 | Outpatient (CLI) | payer BC, SELFPAY ==
--- OUTSIDE RECORDS SUMMARY | 2025-06-02 09:18 | XMS_ITS | Data Portability ---
Author Organization MERNA BONITA [facility] [place] [facility] Address [address] [facility] [place] [address] Care Team Providers Care Patient Transportation Driver Name Role Phone UMER CHUENG Referring Provider LADONNA OLIVER Primary Care Provider Assessment Encounter Date Assessment Date Assessment LastModified by Organization Details LastModified Time 06/11/2020 06/11/2020 She will continue working with hand therapy on motion, stretching, edema control, and continued splinting. Continue strict hand elevation at rest. Counselling on continued precautions discussed at length. She will follow-up with Dr. Tellez in 4 weeks. RTO as scheduled or sooner if needed, advised to call office with any questions/concer ns. [email or web address] Not available 06/12/2020 14:53:19 07/09/2020 07/09/2020 Patient will continue working with therapy on aggressive motion/stretchin g and progressive strengthening as well. No restrictions with the hand. We once again discussed that given her significant preoperative stiffness and functional limitations, that it is hard to predict what her ultimate postoperative outcome will be. She is a significant scar/adhesion former, which is going to limit her ultimate outcome. Ultimately we will need to see where she ends up in regards to her mobility and function with this hand to determine if any additional treatment is warranted in the future. Follow-up again in 6 weeks for repeat assessment, but will call sooner with any additional questions or concerns. [email or web address] Not available 07/09/2020 11:44:40 09/24/2020 09/24/2020 Patient has made further improvement in regards to her hand and wrist mobility since last appointment and feels that she is continuing to make gradual progress at this time. Thus, she will continue working with therapy on aggressive motion/stretchin g and progressive strengthening as well. No restrictions with the hand. We once again discussed that given her significant preoperative stiffness and functional limitations, that it is hard to predict what her ultimate postoperative outcome will be. She is a significant scar/adhesion former, which is going to limit her ultimate outcome. Ultimately we will need to see where she ends up in regards to her mobility and function with this hand to determine if any additional treatment is warranted in the future. Follow-up again in 6 weeks for repeat assessment, but will call sooner with any additional questions or concerns. [email or web address] Not available 09/24/2020 12:34:39 11/05/2020 11/05/2020 Patient has made further improvement in regards to her hand and wrist mobility since last appointment and feels that she is continuing to make gradual progress at this time. Thus, she will continue working with therapy on aggressive motion/stretchin g and progressive strengthening as well. No restrictions with the hand. We once again discussed that given her significant preoperative stiffness and functional limitations, that it is hard to predict what her ultimate postoperative outcome will be, but at this time I would not anticipate much further improvement. She is a significant scar/adhesion former, which is going to limit her ultimate outcome. Ultimately we will need to see where she ends up in regards to her mobility and function with this hand to determine if any additional treatment is warranted in the future. At this point if any additional surgery was required, I would consider repeat dorsal MCP joint capsular releases to try to improve her overall flexion and medical underwriter strength. However, at this time patient does not want any additional surgery. Follow-up again in 6 weeks for repeat assessment at which time I anticipate she will have plateaued in her recovery. We will then determine whether any additional treatment as warranted or if she feels sufficiently recovered for baseline activities with the hand. She will certainly have permanent disability/limit ations regarding her right hand. [email or web address] Not available 11/05/2020 18:35:45 12/15/2020 12/15/2020 Patient seems to have now plateaued in her recovery after making initial gains with therapy. Thus, okay to transition now to a home exercise program. No restrictions with the hand. She is a significant scar/adhesion former, which is going to limit her ultimate outcome. At this point the only additional surgery I would consider would be repeat dorsal MCP joint capsular releases to try to improve her overall flexion and medical underwriter strength. However, at this time patient does not want any additional surgery. Thus, she can continue to use her hand as tolerated for all activities. Should she feel that additional surgery would be beneficial to try and improve her overall digital flexion and medical underwriter strength, she will contact my office to be seen again in the future for repeat assessment, otherwise she will follow-up on an as-needed basis with any additional questions or concerns. As we previously discussed she does have permanent disability/limit ations regarding her right hand. [email or web address] Not available 12/15/2020 12:57:33 Plan of Treatment Reminders Order Date Submit Date Provider Last Modified By Organization Details Last Modified Time Details Appointments None recorded. Lab None recorded. Referral occupationa l therapist referral 2019 020 [place]_ [facility], [address] [place] [address], [place], [address], 03:32:50 Procedures None recorded. Surgeries None recorded. Imaging None recorded. Medication Orders [place] 5 mg-325 mg tablet 2019 020 [place] 07 [facility], [address], [address], 03:36:07 Patient TargetsNo targets recorded. Patient InstructionsNo instructions recorded. 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 Procedures Surgical History Date Name Laterality Status Provider Name and Address Organization Details Recorded Time 05/28/2020 Orthotic, WHFO, Static Custom completed SHWETA ROMO, OTR/L, CHT [address] [place] [address], [phone], [facility] 05/29/2020 08:02:36 05/27/2020 Op Note completed GIUSEPPE TELLEZ MD [address] [place] [address], [id number] [place] [address] 05/28/2020 07:52:16 03/13/2020 Op Note completed GIUSEPPE TELLEZ MD [address] [place] [address], [id number] [place] [address] 03/13/2020 11:50:23 Imaging Results None recorded. Procedure Notes None recorded. Medical Equipment None Reported. Allergies No known drug allergies Medications Name Sig Start Date Stop Date Status Note LastModified by Organization Details LastModified Time Neurontin 300 mg capsule take 1 tablet three times a day (every ~8 hours) 09/24 completed Not Available Not Available Not Available tramadol 50 mg tablet TAKE 1 TABL PO Q 4-6 HRS PRN FOR UNCONTROL LED PAIN 03/26 completed Not Available Not Available Not Available meloxicam 7.5 mg tablet TAKE 1 TAB PO QD WITH FOOD REGARDLES S OF PAIL LEVEL FOR 1 WEEK, THEN TAKE ONLY PRN FOR PAIN RELIEF THEREAFTE R 09/24 completed Not Available Not Available Not Available Zofran 4 mg tablet 1 tablet every 6-8 hours as needed for nausea 11/05 completed Not Available Not Available Not Available oxycodone-a cetaminophe n 7.5 mg-325 mg tablet 1 tablet as needed for uncontrol led post-op pain 09/24 completed Not Available Not Available Not Available [place] 5 mg-325 mg tablet TAKE 1 TAB PO Q 4-6 HRS PRN UNCONTROL LED PAIN 09/24 completed Not Available Not Available Not Available gabapentin active Not Available Not Av ailable Not Available Vitals Date Recorded Body height Body mass index (BMI) Body weight Pain severity - 0-10 verbal numeric rating [Score] - Reported Provider Name and Address Organization Details Last Updated DateTime 09/24/2020 157.48 cm 32.9 kg/m2 24808.63 g 1 Vanessa Cavazos [facility] 09/24/2020 11:07:41 Date Recorded Body height Body mass index (BMI) Body weight Pain severity - 0-10 verbal numeric rating [Score] - Reported Provider Name and Address Organization Details Last Updated DateTime 11/05/2020 157.48 cm 32.9 kg/m2 04760.63 g 0 Vanessa Cavazos [facility] 11/05/2020 11:50:09 Date Recorded Body height Body mass index (BMI) Body weight Provider Name and Address Organization Details Last Updated DateTime 12/15/2020 157.48 cm 32.9 kg/m2 50733.63 g Norma Chambers [facility] 12/15/2020 11:12:18 Date Recorded Body height Body mass index (BMI) Body weight Provider Name and Address Organization Details Last Updated DateTime 06/11/2020 157.48 cm 32.9 kg/m2 80865.63 g Lashae Walton [facility] 06/11/2020 09:58:36 Date Recorded Body height Body mass index (BMI) Body weight Provider Name and Address Organization Details Last Updated DateTime 07/09/2020 157.48 cm 32.9 kg/m2 90567.63 g Karie Rivas [facility] 07/09/2020 11:06:14 Social History Question Answer Notes LastModified by Organizat ion Details LastModified Time Tobacco Smoking Status Never Smoker Vanessa Cavazos corine [facility] 09/24/2020 11:09:58 Which Of Your Hands Is Dominant? Right [email or web address] Information not available 12/15/2020 Sex: Unknown Functional Status None recorded. Mental Status None recorded. Family History Relationship Description Onset Age of this Age Resolved Age Notes LastModified by Organization Details LastModified Time Father No current problems or disability [email or web address] Not available 03/26 08:15:55 Mother No current problems or disability [email or web address] Not available 03/26 08:15:55 Medical History Condition Response Allergies/Hayfever N Other N Gout N Anxiety/Depression N Thyroid Disease N Kidney Stones N Heart Conditions N Hernia N Migraines N Glaucoma N COPD N Pneumonia N Skin Problems N Immune System Disorder N Anesthesia Complications N Heart Attack ([place]) N Mental Illness N Neurological Problems N Diabetes N Rheumatic Fever N Bleeding Disorder N Arthritis N Seizures/Epilepsy N Blood Clot N Tuberculosis N Genetic Disorder N AIDS/HIV N Cancer N Stroke N Asthma N Blood Thinners N Alcohol Overuse/Alcohol Abuse N Sleep Apnea N High Cholesterol N Liver Disease N Included as Review of Systems Y Hypertension N Osteoporosis N Kidney Disease N Gynecological HistoryNo gynecological history recorded. Obstetrics History GPAL:G 0 P 0 0 0 0 Past Encounters Encounter ID Performer Location Encounter Start Date Encounter Closed Date Diagnosis/Indication Diagnosis SNOMED-CT Code Diagnosis ICD10 Code Diagnosis IMO Codes Diagnosis Note [id number] GIUSEPPE TELLEZ MD [facility] [address] [place] [address] 02/21/2020 13:47:15 02/21/2020 16:48:42 Complex regional pain syndrome 476884877 M89.041 Closed fra cture of distal end of radius 43622223 S52.501S Outside x-rays reviewed demonstrat ing anatomic distal radius fracture reduction with healing and no evidence of hardware complicati on Carpal jennifer caio syndrome 41983798 G56.01 [id number] GIUSEPPE TELLEZ MD SURGERY SCHEDULE [address] [place] [address] 03/13/2020 07:49:16 03/13/2020 07:50:31 [id number] GIUSEPPE TLELEZ MD [facility]OPEDI [facility] [address] [facility] [place] [address] 03/26/2020 08:10:20 03/26/2020 09:32:30 Postoperative care 916490054 Z48.89 2 weeks status post right endoscopic carpal tunnel release and manipulati on of right forearm, wrist, and hand/digit s under anesthesia (03/13/20) Ulnar neur opathy of right arm 6297695132 53208 G56.21 EMG/NCV (03/09/20) demonstrat ed moderate ulnar neuropathy . Findings are most notable at the wrist. Also noted were findings consistent with chronic brachial plexopathy , with no acute changes. [id number] GIUSEPPE TELLEZ MD [facility] [address] [place] [address] 04/28/2020 10:53:52 04/28/2020 13:58:54 Postoperative care 292052574 Z48.89 6 weeks status post right endoscopic carpal tunnel release and manipulati on of right forearm, wrist, and hand/digit s under anesthesia (03/13/20) Ulnar neur opathy of right arm 5041650275 32195 G56.21 EMG/NCV (03/09/20) demonstrat ed moderate ulnar neuropathy . Findings are most notable at the wrist. Also noted were findings consistent with chronic brachial plexopathy , with no acute changes. [id number] GIUSEPPE TELLEZ MD SURGERY SCHEDULE [address] [place] [address] 05/27/2020 10:44:34 05/27/2020 10:46:11 [id number] GIUSEPPE TELLEZ MD [facility] [address] [place] [address] 05/28/2020 10:41:43 05/28/2020 13:53:30 Postoperative care 584142085 Z48.89 1 days s/p: -Right ulnar nerve decompress ion at the wrist (Guyon's canal) - Right index, middle, ring, and small finger MCP joint dorsal capsulotom ies with contractur e releases - Right index, middle, ring, and small finger volar PIP joint capsulotom ies with volar plate/cont racture releases - Right index, middle, ring, and small finger extensor tenolysis - Right index, middle, ring, and small finger intrinsic lengthenin gs with muscle release/sl lit - Percutaneo us stabilizat ion of right index, middle, ring, and small finger MCP joint contractur e correction s - Percutaneo us stabilizat ion of right index middle, ring, and small finger PIP joint contractur e correction s Previously status post right endoscopic carpal tunnel release and manipulati on of right forearm, wrist, and hand/digit s under anesthesia (03/13/20) Ulnar neur opathy of right arm 6066535192 74934 G56.21 EMG/NCV (03/09/20) demonstrat ed moderate ulnar neuropathy . Findings are most notable at the wrist. Also noted were findings consistent with chronic brachial plexopathy , with no acute changes. [id number] SHWETA ROMO, OTR/L, CHT PHYSICAL THERAPY / HAND THERAPY [facility] [address] [place] [place] [address] 05/28/2020 11:56:16 05/29/2020 10:18:42 Injury of ulnar nerve 73229345 S54.01XD Contractur e of joint of finger 423272950 M24.549 IF,MF,RF,S F Contractur e releases. [id number] GIUSEPPE TELLEZ MD [facility] [address] [place] [address] 05/29/2020 14:41:08 06/11/2020 15:30:51 Postoperative care 937754537 Z48.89 2 days s/p: -Right ulnar nerve decompress ion at the wrist (Guyon's canal) - Right index, middle, ring, and small finger MCP joint dorsal capsulotom ies with contractur e releases - Right index, middle, ring, and small finger volar PIP joint capsulotom ies with volar plate/cont racture releases - Right index, middle, ring, and small finger extensor tenolysis - Right index, middle, ring, and small finger intrinsic lengthenin gs with muscle release/sl lit - Percutaneo us stabilizat ion of right index, middle, ring, and small finger MCP joint contractur e correction s - Percutaneo us stabilizat ion of right index middle, ring, and small finger PIP joint contractur e correction s Previously status post right endoscopic carpal tunnel release and manipulati on of right forearm, wrist, and hand/digit s under anesthesia (03/13/20) Ulnar neur opathy of right arm 7393255979 35383 G56.21 EMG/NCV (03/09/20) demonstrat ed moderate ulnar neuropathy . Findings are most notable at the wrist. Also noted were findings consistent with chronic brachial plexopathy , with no acute changes. [id number] GIUSEPPE TELLEZ MD [facility] [address] [place] [address] 06/02/2020 10:12:42 06/02/2020 14:33:01 Postoperative care 823068954 Z48.89 1 week s/p (05/27/20): -Right ulnar nerve decompress ion at the wrist (Guyon's canal) - Right index, middle, ring, and small finger MCP joint dorsal capsulotom ies with contractur e releases - Right index, middle, ring, and small finger volar PIP joint capsulotom ies with volar plate/cont racture releases - Right index, middle, ring, and small finger extensor tenolysis - Right index, middle, ring, and small finger intrinsic lengthenin gs with muscle release/sl lit - Percutaneo us stabilizat ion of right index, middle, ring, and small finger MCP joint contractur e correction s - Percutaneo us stabilizat ion of right index middle, ring, and small finger PIP joint contractur e correction s Previously status post right endoscopic carpal tunnel release and manipulati on of right forearm, wrist, and hand/digit s under anesthesia (03/13/20) Ulnar neur opathy of right arm [id number] 58232 G56.21 EMG/NCV (03/09/20) demonstrat ed moderate ulnar neuropathy . Findings are most notable at the wrist. Also noted were findings consistent with chronic brachial plexopathy , with no acute changes. [id number] RENETTA PAEZ PA-C [facility] [address] [place] [address] 06/11/2020 09:53:02 06/16/2020 13:55:52 Postoperative care 689803281 Z48.89 2 weeks s/p (05/27/20): -Right ulnar nerve decompress ion at the wrist (Guyon's canal) - Right index, middle, ring, and small finger MCP joint dorsal capsulotom ies with contractur e releases - Right index, middle, ring, and small finger volar PIP joint capsulotom ies with volar plate/cont racture releases - Right index, middle, ring, and small finger extensor tenolysis - Right index, middle, ring, and small finger intrinsic lengthenin gs with muscle release/sl lit - Percutaneo us stabilizat ion of right index, middle, ring, and small finger MCP joint contractur e correction s - Percutaneo us stabilizat ion of right index middle, ring, and small finger PIP joint contractur e correction s Previously status post right endoscopic carpal tunnel release and manipulati on of right forearm, wrist, and hand/digit s under anesthesia (03/13/20) Ulnar neur opathy of right arm 7328877111 17555 G56.21 EMG/NCV (03/09/20) demonstrat ed moderate ulnar neuropathy . Findings are most notable at the wrist. Also noted were findings consistent with chronic brachial plexopathy , with no acute changes. [id number] GIUSEPPE TELLEZ MD [facility] [address] [place] [address] 07/09/2020 11:00:07 07/09/2020 11:39:46 Postoperative care 050367767 Z48.89 6 weeks s/p (05/27/20): -Right ulnar nerve decompress ion at the wrist (Guyon's canal) - Right index, middle, ring, and small finger MCP joint dorsal capsulotom ies with contractur e releases - Right index, middle, ring, and small finger volar PIP joint capsulotom ies with volar plate/cont racture releases - Right index, middle, ring, and small finger extensor tenolysis - Right index, middle, ring, and small finger intrinsic lengthenin gs with muscle release/sl lit - Percutaneo us stabilizat ion of right index, middle, ring, and small finger MCP joint contractur e correction s - Percutaneo us stabilizat ion of right index middle, ring, and small finger PIP joint contractur e correction s Previously status post right endoscopic carpal tunnel release and manipulati on of right forearm, wrist, and hand/digit s under anesthesia (03/13/20) Ulnar neur opathy of right arm [id number] 66071 G56.21 EMG/NCV (03/09/20) demonstrat ed moderate ulnar neuropathy . Findings are most notable at the wrist. Also noted were findings consistent with chronic brachial plexopathy , with no acute changes. [id number] GIUSEPPE TELLEZ MD [facility] [address] [place] [address] 09/24/2020 10:35:40 09/24/2020 12:06:24 Postoperative care 731412960 Z48.89 4 months s/p (05/27/20): -Right ulnar nerve decompress ion at the wrist (Guyon's canal) - Right index, middle, ring, and small finger MCP joint dorsal capsulotom ies with contractur e releases - Right index, middle, ring, and small finger volar PIP joint capsulotom ies with volar plate/cont racture releases - Right index, middle, ring, and small finger extensor tenolysis - Right index, middle, ring, and small finger intrinsic lengthenin gs with muscle release/sl lit - Percutaneo us stabilizat ion of right index, middle, ring, and small finger MCP joint contractur e correction s - Percutaneo us stabilizat ion of right index middle, ring, and small finger PIP joint contractur e correction s Previously status post right endoscopic carpal tunnel release and manipulati on of right forearm, wrist, and hand/digit s under anesthesia (03/13/20) EMG/NCV (03/09/20) demonstrat ed moderate ulnar neuropathy . Findings are most notable at the wrist. Also noted were findings consistent with chronic brachial plexopathy , with no acute changes. [id number] GIUSEPPE TELLEZ MD [facility] [address] [place] [address] 11/05/2020 11:01:09 11/05/2020 12:46:36 Postoperative care [id number] Z48.89 4 months s/p (05/27/20): -Right ulnar nerve decompress ion at the wrist (Guyon's canal) - Right index, middle, ring, and small finger MCP joint dorsal capsulotom ies with contractur e releases - Right index, middle, ring, and small finger volar PIP joint capsulotom ies with volar plate/cont racture releases - Right index, middle, ring, and small finger extensor tenolysis - Right index, middle, ring, and small finger intrinsic lengthenin gs with muscle release/sl lit - Percutaneo us stabilizat ion of right index, middle, ring, and small finger MCP joint contractur e correction s - Percutaneo us stabilizat ion of right index middle, ring, and small finger PIP joint contractur e correction s Previously status post right endoscopic carpal tunnel release and manipulati on of right forearm, wrist, and hand/digit s under anesthesia (03/13/20) EMG/NCV (03/09/20) demonstrat ed moderate ulnar neuropathy . Findings are most notable at the wrist. Also noted were findings consistent with chronic brachial plexopathy , with no acute changes. [id number] GIUSEPPE TELLEZ MD [facility] [address] [address] 12/15/2020 11:00:25 12/15/2020 13:11:48 Postoperative care [id number] Z48.89 6.5 months s/p (05/27/20): -Right ulnar nerve decompress ion at the wrist (Guyon's canal) - Right index, middle, ring, and small finger MCP joint dorsal capsulotom ies with contractur e releases - Right index, middle, ring, and small finger volar PIP joint capsulotom ies with volar plate/cont racture releases - Right index, middle, ring, and small finger extensor tenolysis - Right index, middle, ring, and small finger intrinsic lengthenin gs with muscle release/sl lit - Percutaneo us stabilizat ion of right index, middle, ring, and small finger MCP joint contractur e correction s - Percutaneo us stabilizat ion of right index middle, ring, and small finger PIP joint contractur e correction s Previously status post right endoscopic carpal tunnel release and manipulati on of right forearm, wrist, and hand/digit s under anesthesia (03/13/20) EMG/NCV (03/09/20) demonstrat ed moderate ulnar neuropathy . Findings are most notable at the wrist. Also noted were findings consistent with chronic brachial plexopathy , with no acute changes. Health Concerns Section Related Observation LastModified by Organization Detai ls LastModified Time None Recorded Concern Status LastModified by Organization Details LastModified Time None Recorded Advance Directives Directive None Recorded Payers Insurance Date Sequence Insurance Name Policy Number Policy Gil Covered Member ID Gil Member ID Guarantor Name 12/12/2020 1 [employer] [facility] (MEDICAID HMO) Maritza Carl [id number] Maritza Carl 04/27/2020 [employer] (MOVED TO HOLD) Maritza Carl 06/02/2020 [place] [facility] Maritza Carl Notes Date Note Type Note Provider Name and Address Organization Details Recorded Time 06/11/2020 text/html Patient returns today for post op recheck and suture removal. Primary Care Physician: Ladonna Oliver PA-C Hand dominance: Right Location: Right Wrist Pain level: 2 /10 at worst 05/02 Date of injury: 10-29-19 Recent Surgery: Yes Date of surgery: 05/27/20 Currently employed?: unemployed RENETTA PAEZ PA-C [facility] [place] [place], [address], [facility] 06/12/2020 14:56:05 07/09/2020 text/html Patient reports some gradual improvement with therapy. No significant pain at rest, but she does report pain and discomfort with therapy as expected. Still with some numbness and tingling in the small finger at this time. Primary Care Physician: Ladonna Oliver PA-C Hand dominance: Right Location: Right Wrist Pain level: Date of injury: 10-29-19 s/p 8 months Recent Surgery: Yes Date of surgery: 05/27/20 s/p 6 weeks GP 08-23-20 - Right ulnar nerve decompression at the wrist (Guyon's canal) - Right index, middle, ring, and small finger MCP joint dorsal capsulotomies with contracture releases - Right index, middle, ring, and small finger volar PIP joint capsulotomies with volar plate/contracture releases - Right index, middle, ring, and small finger extensor tenolysis - Right index, middle, ring, and small finger intrinsic lengthenings with muscle release/slide - Percutaneous stabilization of right index, middle, ring, and small finger MCP joint contracture corrections - Percutaneous stabilization of right index middle, ring, and small finger PIP joint contracture corrections Currently employed?: unemployed GIUSEPPE TELLEZ MD [address] [place], [address], [facility] 07/09/2020 11:47:31 09/24/2020 text/html Patient reports that she has noticed progressive improvement in her mobility and hand function since last visit with continued therapy. She feels that she is still making gradual improvements over time. She is now able to do certain activities such as applying her makeup and do her hair, which she was unable to prior to surgery. Pain in the hand/wrist at this time, except for discomfort with therapy exercises as expected. Still with some mild residual numbness/tingling in the small finger, which is improving. Primary Care Physician: Ladonna Oliver PA-C Hand dominance: Right Location: Right Wrist Pain level: Date of injury: 10-29-19 S/P: 11 months Recent Surgery: Yes Date of surgery: 05/27/20 S/P: 4 months GP 08-23-20 - Right ulnar nerve decompression at the wrist (Guyon's canal) - Right index, middle, ring, and small finger MCP joint dorsal capsulotomies with contracture releases - Right index, middle, ring, and small finger volar PIP joint capsulotomies with volar plate/contracture releases - Right index, middle, ring, and small finger extensor tenolysis - Right index, middle, ring, and small finger intrinsic lengthenings with muscle release/slide - Percutaneous stabilization of right index, middle, ring, and small finger MCP joint contracture corrections - Percutaneous stabilization of right index middle, ring, and small finger PIP joint contracture corrections Currently employed?: Unemployed Patient returns for a recheck. Patient states that she has been going to therapy still about three times a week. She says that she feels they are making progress but that it is slow. Patient states that she does not usually have pain unless she is in therapy. Patient says that the numbness and tingling has gone down. However, she does say that she is still experiencing numbness all the time in the right SF. GIUSEPPE TELLEZ [place] [facility] [place], [address], [facility] 09/24/2020 12:35:05 11/05/2020 text/html Patient reports that she has noticed further progressive improvement in her mobility and hand function since last visit with continued therapy. She feels that she is still making gradual improvements over time. She is able to do certain activities such as fixing her hair, applying her makeup, and now sweeping and mopping, which she was unable to prior to surgery. Still with difficulty with heavy gripping activities as she is unable to take off a tight jar lid or ring out her mop with the hand. She reports no pain throughout the hand/wrist at this time. Still with some mild residual tingling in the small finger, which continues to improve over time. Primary Care Physician: Ladonna Oliver PA-C Hand dominance: Right Location: Right Wrist Pain level: 0 /10 Date of injury: 10-29-19 S/P: 1 year Recent Surgery: Yes Date of surgery: 05/27/20 S/P: 5 months GP 08-23-20 - Right ulnar nerve decompression at the wrist (Guyon's canal) - Right index, middle, ring, and small finger MCP joint dorsal capsulotomies with contracture releases - Right index, middle, ring, and small finger volar PIP joint capsulotomies with volar plate/contracture releases - Right index, middle, ring, and small finger extensor tenolysis - Right index, middle, ring, and small finger intrinsic lengthenings with muscle release/slide - Percutaneous stabilization of right index, middle, ring, and small finger MCP joint contracture corrections - Percutaneous stabilization of right index middle, ring, and small finger PIP joint contracture corrections Currently employed?: Unemployed Patient returns for a recheck. Patient says that she is still making some progress, but it is very slow. Patient still attending therapy three times a week. Patient states that she does not have pain unless she uses it a lot. Patient says that her ROM is a little better. Patient says that now she just has tingling in her right SF. GIUSEPPE TELLEZ MD [address] [place] [address], [phone], [facility] 11/05/2020 18:35:56 12/15/2020 text/html patient reports that she feels that she has plateaued at this time with therapy. In fact, she recently sustained a at sunburn and did not go to therapy for a week or wear her brace during that time and she reports less irritation in the hand during that timeframe. States that therapy seems to irritate her hand and cause her some discomfort. Overall, she is still able to do certain activities such as fixing her hair, applying her makeup, and sweeping/mopping, which she was unable to prior to surgery. Still with difficulty with heavy gripping activities as she is unable to take off a tight jar lid or ring out her mop with the hand. She reports no pain throughout the hand/wrist at this time. Still with some mild residual tingling in the small finger, which continues to improve over time. Primary Care Physician: Ladonna Oliver PA-C Hand dominance: Right Location: Right Wrist Pain level: 0 /10 Date of injury: 10-29-19 S/P: 1 year Recent Surgery: Yes Date of surgery: 05/27/20 S/P: 5 months GP 08-23-20 - Right ulnar nerve decompression at the wrist (Guyon's canal) - Right index, middle, ring, and small finger MCP joint dorsal capsulotomies with contracture releases - Right index, middle, ring, and small finger volar PIP joint capsulotomies with volar plate/contracture releases - Right index, middle, ring, and small finger extensor tenolysis - Right index, middle, ring, and small finger intrinsic lengthenings with muscle release/slide - Percutaneous stabilization of right index, middle, ring, and small finger MCP joint contracture corrections - Percutaneous stabilization of right index middle, ring, and small finger PIP joint contracture corrections Currently employed?: Unemployed Patient is still attending therapy three times per week. Her symptoms are unchanged since last visit. ROM has improved but still has difficulty bending the fingers and pain with use. GIUSEPPE TELELZ MD [address] [place], [address], [facility] 12/15/2020 12:57:54 OBGyn Episode No OBEpisode recorded.
[2025-06-02 09:33] LABS: Hematocrit 40.5 % (37.0-47.0); Hemoglobin 13.6 g/dL (12.2-16.2); Immature Granulocytes % 0.3 %; Mean Corpuscular HGB Conc 33.6 g/dL (31.8-35.4); Mean Corpuscular Hemoglobin 29.9 pg (27.0-31.2); Mean Corpuscular Volume 89.0 fl (81-99); Nucleated Red Blood Cells % 0 %; Platelet Count 309 K/mm3 (142-424); Red Blood Count 4.55 M/mm3 (4.20-5.40); Red Cell Distribution Width-SD 44.3 fL; White Blood Count 5.9 K/mm3 (4.8-10.8)
[2025-06-02 10:12] LABS: Alanine Aminotransferase 16 U/L (12-78); Albumin Level 4.1 g/dl (3.5-5.0); Albumin/Globulin Ratio 1.2 (1.1-1.8); Alkaline Phosphatase 62 U/L (38-126); Anion Gap 10.3 mEq/L (5-15); Aspartate Amino Transferase 21 U/L (14-36); Bilirubin,Total 0.8 mg/dl (0.2-1.3); Blood Urea Nitrogen 16 mg/dl (7-17); Calcium 9.1 mg/dl (8.4-10.2); Carbon Dioxide 23 mmol/L (22.0-30.0); Chloride 107 mmol/L (98-107); Cholesterol 174 mg/dl (140-200); Creatinine,Serum 0.90 mg/dl (0.52-1.04); Estimated Glomerular Filt Rate 69 ml/min (>60); GFR (African American) 83 ML/MIN (>60); Globulin 3.3 g/dL (1.3-3.2); Glucose 97 mg/dl (74-100); HDL Cholesterol 38 mg/dl (40-60); Potassium 4.3 mmoL/L (3.5-5.1); Sodium 136 mmol/L (136-145); Total Protein,Serum 7.4 g/dl (6.3-8.2); Triglycerides 120 mg/dl (30-150)
[2025-06-02 10:27] LABS: 25-OH Vitamin D, Total 36.3 ng/mL (30-100)
[2025-06-02 11:03] LABS: Vitamin B12 245 pg/mL (239-931)
== END 2025-06-02 23:59 | disposition home or self-care (01) ==
LOC: LAB 09:05
PROVIDERS: PCP Physician Assistant; Visit Provider Nurse Practitioner Obstetrics & Gynecology
DX: R53.83 Other fatigue (principal)
CPT/HCPCS: 36415; 80053; 80061; 82306; 82607; 85025

== ENCOUNTER 2025-06-11 15:28 | Outpatient (CLI) | payer BC, SELFPAY ==
--- NOTE | 2025-06-11 15:30 | MM_ITS ---
PROCEDURE INFORMATION: Exam: MG Bilateral Screening 3D Mammography Exam date and time: 06/11/2025 3:29 PM Age: 39 years old Clinical indication: Screening examination. TECHNIQUE: Imaging protocol: Bilateral Screening tomosynthesis and 2D mammography including computer-aided detection (CAD) when performed. COMPARISON: 1. MG MM DIG SCREENING MAMM BI W/CAD 09/13/2023 9:45 AM 2. MG DMSB DIG MAMM-SCREEN HORTENCIA W/CAD 06/19/2017 10:09 AM FINDINGS: MAMMOGRAPHY: Breast composition: The breasts are heterogeneously dense, which may obscure small masses. Mass: None. Architectural distortion: None. Calcifications: No suspicious calcifications. Asymmetric density: None. Skin thickening: None. Axillary adenopathy: None. IMPRESSION: No mammographic evidence of malignancy. Annual screening is recommended unless otherwise clinically indicated. ASSESSMENT: BI-RADS Category 1: Negative.
--- OUTSIDE RECORDS SUMMARY | 2025-06-11 16:23 | XMS_ITS | Data Portability ---
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 However, at this time patient does not want any additional surgery. Thus, she can continue to use her hand as tolerated for all activities. 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 Surgeries None recorded. Imaging None recorded. Medication Orders Wellington 5 mg-325 mg tablet 2019 020 DBA_BACKF [place]_ 07 [facility], [address], [address], 03:36:07 Patient TargetsNo targets recorded. Patient InstructionsNo instructions recorded. 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 Procedures Surgical History Date Name Laterality Status Provider Name and Address Organization Details Recorded Time 05/28/2020 Orthotic, WHFO, Static Custom completed SHWETA ROMO, OTR/L, CHT [address] [place] [address], [phone], [facility] 05/29/2020 08:02:36 05/27/2020 Op Note completed GIUSEPPE TELLEZ MD [address] [place] [address], [phone] [place] [address] 05/28/2020 07:52:16 03/13/2020 Op Note completed GIUSEPPE TELLEZ MD [address] [place] [address], [phone] [place] [address] 03/13/2020 11:50:23 Imaging Results None recorded. Procedure [...] completed Not Available Not Available Not Available Wellington 5 mg-325 mg tablet TAKE 1 TAB [...] Updated DateTime 09/24/2020 157.48 cm 32.9 kg/m2 21801.63 g 1 Vanessa Cavazos [facility] 09/24/2020 11:07:41 Date Recorded Body height Body mass index (BMI) Body weight Pain severity - 0-10 verbal numeric rating [Score] - Reported Provider Name and Address Organization Details Last Updated DateTime 11/05/2020 157.48 cm 32.9 kg/m2 61590.63 g 0 Vanessa Cavazos [facility] 11/05/2020 11:50:09 Date Recorded Body height Body mass index (BMI) Body weight Provider Name and Address Organization Details Last Updated DateTime 12/15/2020 157.48 cm 32.9 kg/m2 17129.63 g Norma Chambers [facility] 12/15/2020 11:12:18 Date Recorded Body height Body mass index (BMI) Body weight Provider Name and Address Organization Details Last Updated DateTime 06/11/2020 157.48 cm 32.9 kg/m2 08203.63 g Lashae Walton [facility] 06/11/2020 09:58:36 Date Recorded Body height Body mass index (BMI) Body weight Provider Name and Address Organization Details Last Updated DateTime 07/09/2020 157.48 cm 32.9 kg/m2 42348.63 g Karie Rivas [facility] 07/09/2020 11:06:14 Social History Question Answer Notes LastModified by Organizat ion Details LastModified Time Tobacco Smoking Status Never Smoker Vanessa Cavazos corine [facility] 09/24/2020 11:09:58 Which Of Your Hands Is Dominant? Right [email or web address] Information not available 12/15/2020 Sex: Unknown Functional Status None recorded. Mental Status None recorded. Family History Relationship Description Onset Age of this Age Resolved Age Notes LastModified by Organization Details LastModified Time Father No current problems or disability [email or web address] Not available 03/26 08:15:55 Mother No current problems or disability [email or web address] Not available 03/26 08:15:55 Medical History Condition Response Allergies/Hayfever N Anxiety/Depression N Other N Gout N Thyroid Disease N Kidney Stones N Heart Conditions N Hernia N Migraines N COPD N Glaucoma N Pneumonia N Skin Problems N Immune System Disorder N Anesthesia Complications N Heart Attack ([place]) N Mental Illness N Neurological Problems N [...] ICD10 Code Diagnosis IMO Codes Diagnosis Note [id number] GIUSEPPE TELLEZ MD [facility] [address] [place] [address] 02/21/2020 13:47:15 02/21/2020 16:48:42 Complex regional pain syndrome 439405974 M89.041 Closed fra cture of distal end of radius 35812417 S52.501S Outside x-rays reviewed demonstrat ing anatomic distal radius fracture reduction with healing and no evidence of hardware complicati on Carpal jennifer caio syndrome 38507832 G56.01 [id number] GIUSEPPE TELLEZ MD SURGERY SCHEDULE [address] [place] [address] 03/13/2020 07:49:16 03/13/2020 07:50:31 [id number] GIUSEPPE TELLEZ MD [facility]I [facility] [address] [facility] [place] [place] [address] 03/26/2020 08:10:20 03/26/2020 09:32:30 Postoperative care 857765908 Z48.89 2 weeks status post right endoscopic carpal tunnel release and manipulati on of right forearm, wrist, and hand/digit s under anesthesia (03/13/20) Ulnar neur opathy of right arm 6608848889 26829 G56.21 EMG/NCV (03/09/20) demonstrat ed moderate ulnar neuropathy . Findings are most notable at the wrist. Also noted were findings consistent with chronic brachial plexopathy , with no acute changes. [id number] GIUSEPPE TELLEZ MD [facility] [address] [address] 04/28/2020 10:53:52 04/28/2020 13:58:54 Postoperative care 236638902 Z48.89 6 weeks status post right endoscopic carpal tunnel release and manipulati on of right forearm, wrist, and hand/digit s under anesthesia (03/13/20) Ulnar neur opathy of right arm 7997568842 96016 G56.21 EMG/NCV (03/09/20) demonstrat ed moderate ulnar neuropathy . Findings are most notable at the wrist. Also noted were findings consistent with chronic brachial plexopathy , with no acute changes. [id number] GIUSEPPE TELLEZ MD SURGERY SCHEDULE [address] [place] [address] 05/27/2020 10:44:34 05/27/2020 10:46:11 [id number] GIUSEPPE TELLEZ MD [facility] [address] [place] [address] 05/28/2020 10:41:43 05/28/2020 13:53:30 Postoperative care 876495344 Z48.89 1 days s/p: -Right ulnar nerve [...] (03/13/20) Ulnar neur opathy of right arm 7495859212 84087 G56.21 EMG/NCV (03/09/20) demonstrat ed moderate ulnar neuropathy . Findings are most notable at the wrist. Also noted were findings consistent with chronic brachial plexopathy , with no acute changes. [id number] SHWETA ROMO, OTR/L, CHT PHYSICAL THERAPY / HAND THERAPY [facility] [address] [place] [place] [address] 05/28/2020 11:56:16 05/29/2020 10:18:42 Injury of ulnar nerve 83965065 S54.01XD Contractur e of joint of finger 598085497 M24.549 IF,MF,RF,S F Contractur e releases. [id number] GIUSEPPE TELLEZ MD [facility] [address] [place] [address] 05/29/2020 14:41:08 06/11/2020 15:30:51 Postoperative care 406535349 Z48.89 2 days s/p: -Right ulnar nerve [...] (03/13/20) Ulnar neur opathy of right arm 5770349911 14100 G56.21 EMG/NCV (03/09/20) demonstrat ed moderate ulnar neuropathy . Findings are most notable at the wrist. Also noted were findings consistent with chronic brachial plexopathy , with no acute changes. [id number] GIUSEPPE TELLEZ MD [facility] [address] [place] [address] 06/02/2020 10:12:42 06/02/2020 14:33:01 Postoperative care 053904514 Z48.89 1 week s/p (05/27/20): -Right ulnar [...] (03/13/20) Ulnar neur opathy of right arm 3944037185 39713 G56.21 EMG/NCV (03/09/20) demonstrat ed moderate ulnar neuropathy . Findings are most notable at the wrist. Also noted were findings consistent with chronic brachial plexopathy , with no acute changes. [id number] RENETTA PAEZ PA-C [facility] [address] [place] [address] 06/11/2020 09:53:02 06/16/2020 13:55:52 Postoperative care 911909868 Z48.89 2 weeks s/p (05/27/20): -Right ulnar [...] (03/13/20) Ulnar neur opathy of right arm 8925751298 82844 G56.21 EMG/NCV (03/09/20) demonstrat ed moderate ulnar neuropathy . Findings are most notable at the wrist. Also noted were findings consistent with chronic brachial plexopathy , with no acute changes. [id number] GIUSEPPE TELLEZ MD [facility] [address] [place] [address] 07/09/2020 11:00:07 07/09/2020 11:39:46 Postoperative care 215995718 Z48.89 6 weeks s/p (05/27/20): -Right ulnar [...] (03/13/20) Ulnar neur opathy of right arm 0501879770 16287 G56.21 EMG/NCV (03/09/20) demonstrat ed moderate ulnar neuropathy . Findings are most notable at the wrist. Also noted were findings consistent with chronic brachial plexopathy , with no acute changes. [id number] GIUSEPPE TELLEZ MD [facility] [address] [place] [address] 09/24/2020 10:35:40 09/24/2020 12:06:24 Postoperative care 947180064 Z48.89 4 months s/p (05/27/20): -Right ulnar [...] brachial plexopathy , with no acute changes. [id number] GIUSEPPE TELLEZ MD [facility] [address] [address] 11/05/2020 11:01:09 11/05/2020 12:46:36 Postoperative care 113872654 Z48.89 4 months s/p (05/27/20): -Right ulnar [...] brachial plexopathy , with no acute changes. [id number] GIUSEPPE TELLEZ MD [facility] [address] [address] 12/15/2020 11:00:25 12/15/2020 13:11:48 Postoperative care 574625295 Z48.89 6.5 months s/p (05/27/20): -Right ulnar [...] Member ID Guarantor Name 12/12/2020 1 [employer] [facility] [place] (MEDICAID HMO) Maritza Carl [id number] Maritza Carl 04/27/2020 [employer] (MOVED TO HOLD) Maritza Carl 06/02/2020 [place] [employer] Maritza Carl Notes Date Note Type Note Provider Name and Address Organization Details Recorded Time 06/11/2020 text/html Patient returns today for post op recheck and suture removal. Primary Care Physician: Ladonna Oliver PA-C Hand dominance: Right Location: Right Wrist Pain level: 2 /10 at worst 05/02 Date of injury: 10-29-19 Recent Surgery: Yes Date of surgery: 05/27/20 Currently employed?: unemployed RENETTA PAEZ PA-C [facility] [place], [address], [facility] 06/12/2020 14:56:05 07/09/2020 text/html Patient reports some [...] Currently employed?: unemployed GIUSEPPE TELLEZ MD [address] [place], [address], [facility] 07/09/2020 11:47:31 09/24/2020 text/html Patient reports that [...] in the right SF. GIUSEPPE TELLEZ MD [facility] [place], [address], [facility] 09/24/2020 12:35:05 11/05/2020 text/html Patient reports that [...] in her right SF. GIUSEPPE TELLEZ MD [address] [place] [address], [address], [facility] 11/05/2020 18:35:56 12/15/2020 text/html patient reports that [...] the fingers and pain with use. GIUSEPPE TELLEZ MD [address] [place], [address], [facility] 12/15/2020 12:57:54 OBGyn Episode No OBEpisode recorded.
== END 2025-06-11 23:59 | disposition home or self-care (01) ==
LOC: RAD 15:29
PROVIDERS: PCP Physician Assistant; Visit Provider Nurse Practitioner Obstetrics & Gynecology
DX: Z12.31 Encounter for screening mammogram for malignant neoplasm of breast (principal); R92.333 Mammographic heterogeneous density, bilateral breasts
CPT/HCPCS: 77063; 77067